=== PATIENT | female | born 1960 | race Caucasian/White ===

== ENCOUNTER → 2017-04-18 | Outpatient (CLI) | payer OTHER | LOC: CIMAGING 09:56 | PROVIDERS: ATTEND Family Medicine | DX: Z12.31 Encounter for screening mammogram for malignant neoplasm of breast (principal) | CPT/HCPCS: G0202 ==

== ENCOUNTER → 2017-11-21 | Outpatient (CLI) | payer OTHER | LOC: CIMAGING 15:47 | PROVIDERS: ATTEND Family Medicine | DX: M19.011 Primary osteoarthritis, right shoulder (principal); M19.072 Primary osteoarthritis, left ankle and foot; M46.96 Unspecified inflammatory spondylopathy, lumbar region; M46.97 Unspecified inflammatory spondylopathy, lumbosacral region; M25.512 Pain in left shoulder; M25.571 Pain in right ankle and joints of right foot | CPT/HCPCS: 72100-PO; 73030-PO; 73600-PO ==

== ENCOUNTER 2018-10-18 15:33 | Emergency (ER) | payer OTHER ==
--- NOTE | 2018-10-18 16:12 | EDPHY ---
H & P Stated Complaint: midsternal cp dry cough/morejon x 1 week Time Seen by Provider: 10/18/18 15:43 HPI/ROS: CHIEF COMPLAINT: Nausea, fatigue, chest discomfort, malaise HISTORY OF PRESENT ILLNESS: Patient presents the ED with 4 days of nausea, fatigue, anterior chest discomfort and malaise. The patient denies any fever or productive cough. She denies dysuria. Patient denies any history of fall or trauma. The patient has no complaints of abdominal pain. She denies melena or hematemesis. Patient denies any history of exertional chest pain or shortness of breath. She has no history of coronary artery disease. The patient does have a history of diabetes, chronic back pain and PVCs. The patient reports sporadic alcohol use. She is not a smoker. REVIEW OF SYSTEMS: A comprehensive 10 point review of systems is otherwise negative aside from elements mentioned in the history of present illness. Source: Patient - Personal History Current Tetanus Diphtheria and Acellular Pertussis (TDAP): Yes - Medical/Surgical History Hx Asthma: No Hx Chronic Respiratory Disease: No Hx Diabetes: Yes Hx Cardiac Disease: No Hx Renal Disease: No Hx Cirrhosis: No Hx Alcoholism: No Hx HIV/AIDS: No Hx Splenectomy or Spleen Trauma: No Other PMH: HYST. TONSILS, hypothyroid, insomnia, anxiety, depression - Social History Smoking Status: Never smoked - Physical Exam Exam: General Appearance: Alert, no distress Eyes: Pupils equal and round no pallor or injection ENT, Mouth: Mucous membranes moist Respiratory: There are no retractions, lungs are clear to auscultation Cardiovascular: Regular rate and rhythm Gastrointestinal: Abdomen is soft and nontender, no masses, bowel sounds normal Neurological: 5/5 strength noted all 4 extremities Skin: Warm and dry, no rashes Musculoskeletal: Neck is supple nontender Extremities: symmetrical, full range of motion Constitutional: Initial Vital Signs Temperature (C) 36.6 C 10/18/18 15:35 Heart Rate 74 10/18/18 15:35 Respiratory Rate 18 10/18/18 15:35 Blood Pressure 163/89 H 10/18/18 15:35 O2 Sat (%) 95 10/18/18 15:35 O2 Delivery Mode Room Air Allergies/Adverse Reactions: amoxicillin trihydrate [From Augmentin] Allergy (Verified 10/18/18 15:34) benzocaine Allergy (Verified 10/18/18 15:34) codeine Allergy (Verified 10/18/18 15:34) potassium clavulanate [From Augmentin] Allergy (Verified 10/18/18 15:34) Home Medications: Medication Instructions Recorded Lexapro 06/15/15 Metoprolol Succinate Xr 06/15/15 THYROID 06/15/15 AMITRIPTYLINE HCL [Amitriptyline 12/24/15 100 mg] Medical Decision Making - Diagnostics EKG Interpretation: EKG: Complete interpretation has been separately recorded in the [facility] archive. Summary impression: Sinus rhythm, rate 61, no ischemic changes noted ED Course/Re-evaluation: The patient presents the ED with malaise, nausea, headache and vague nonexertional chest pain. The patient has no risk factors for coronary artery disease. I find the patient's abdominal examination to be benign. EKG and cardiac enzymes are within normal limits. The patient's CBC and metabolic panel are also normal. This point time I do feel the patient likely is experiencing a viral syndrome. The is reasonable to have the patient take Tylenol and ibuprofen as needed for her symptoms. I would like the patient to follow up with her primary care provider for recheck in the next 1-2 days. She is discharged home with customary aftercare instructions and return precautions. Differential Diagnosis: Differential diagnosis considered includes vomiting, dehydration, metabolic abnormality, acute coronary syndrome, pericarditis, pancreatitis, cholecystitis , viral syndrome - Data Points Laboratory Results: Laboratory Results 10/18/18 15:49 10/18/18 15:49 10/18/18 10/18/18 10/18/18 15:59 15:49 15:49 WBC 6.82 10^3/uL 10^3/uL (3.80-9.50) RBC 4.95 10^6/uL 10^6/uL (4.18-5.33) Hgb 14.3 g/dL g/dL (12.6-16.3) Hct 43.0 % % (38.0-47.0) MCV 86.9 fL fL (81.5-99.8) MCH 28.9 pg pg (27.9-34.1) MCHC 33.3 g/dL g/dL (32.4-36.7) RDW 12.7 % % (11.5-15.2) Plt Count 343 10^3/uL 10^3/uL (150-400) MPV 11.5 fL fL (8.7-11.7) Neut % (Auto) 56.7 % % (39.3-74.2) Lymph % (Auto) 29.0 % % (15.0-45.0) Parmer % (Auto) 9.8 % % (4.5-13.0) Eos % (Auto) 3.2 % % (0.6-7.6) Baso % (Auto) 1.0 % % (0.3-1.7) Nucleat RBC Rel Count 0.0 % % (0.0-0.2) Absolute Neuts (auto) 3.86 10^3/uL 10^3/uL (1.70-6.50) Absolute Lymphs (auto) 1.98 10^3/uL 10^3/uL (1.00-3.00) Absolute Monos (auto) 0.67 10^3/uL 10^3/uL (0.30-0.80) Absolute Eos (auto) 0.22 10^3/uL 10^3/uL (0.03-0.40) Absolute Basos (auto) 0.07 10^3/uL 10^3/uL (0.02-0.10) Absolute Nucleated RBC 0.00 10^3/uL 10^3/uL (0-0.01) Immature Gran % 0.3 % % (0.0-1.1) Immature Gran # 0.02 10^3/uL 10^3/uL (0.00-0.10) Sodium 136 mEq/L mEq/L (135-145) Potassium 4.4 mEq/L mEq/L (3.5-5.2) Chloride 107 mEq/L mEq/L (97-110) Carbon Dioxide 23 mEq/l mEq/l (22-31) Anion Gap 6 mEq/L mEq/L (6-14) BUN 12 mg/dL mg/dL (7-23) Creatinine 0.8 mg/dL mg/dL (0.6-1.0) Estimated GFR > 60 Glucose 93 mg/dL mg/dL (70-100) Calcium 9.9 mg/dL mg/dL (8.5-10.4) POC Troponin I 0.00 ng/mL ng/mL (0.00-0.08) Lipase 10/18/18 15:49 WBC RBC Hgb Hct MCV MCH MCHC RDW Plt Count MPV Neut % (Auto) Lymph % (Auto) Parmer % (Auto) Eos % (Auto) Baso % (Auto) Nucleat RBC Rel Count Absolute Neuts (auto) Absolute Lymphs (auto) Absolute Monos (auto) Absolute Eos (auto) Absolute Basos (auto) Absolute Nucleated RBC Immature Gran % Immature Gran # Sodium Potassium Chloride Carbon Dioxide Anion Gap BUN Creatinine Estimated GFR Glucose Calcium POC Troponin I Lipase 109 IU/L IU/L (23-300) Point of Care Test Results: Chemistry 10/18/18 15:59 POC Troponin I 0.00 ng/mL ng/mL (0.00-0.08) Departure - Departure Disposition: Home, Routine, Self-Care Clinical Impression: Chest pain Condition: Good Instructions: Chest Pain (ED), Fatigue (ED) Additional Instructions: 1. The testing done in the emergency department today demonstrates no obvious cardiac condition or other abnormality. 2. Tylenol and ibuprofen as needed for mild headache and discomfort. 3. Please return to the ED for markedly worsening symptoms or other concerns. 4. Please contact your primary care provider to schedule a follow-up visit. Referrals: Yvette Anthony, DO [Primary Care Provider] - As per Instructions
--- NOTE | 2018-10-18 16:12 | CPEKG ---
Test Reason : OPEN Blood Pressure : / mmHG Vent. Rate : 061 BPM Atrial Rate : 062 BPM P-R Int : 155 ms QRS Dur : 085 ms QT Int : 418 ms P-R-T Axes : 048 028 023 degrees QTc Int : 421 ms Sinus rhythm Confirmed by Chaka Sands ([id number]) on 10/18/2018 4:12:23 PM Referred By: Chaka Sands Confirmed By:Chaka Sands
[2018-10-18 17:38] LABS: PLATELET COUNT 343 10^3/uL (150-400)
[2018-10-18 18:28] VITALS: BP 133/83
== END 2018-10-18 18:30 | disposition home or self-care (01) ==
DX: R07.9 Chest pain, unspecified (principal); R11.0 Nausea; R53.83 Other fatigue; M79.10 Myalgia, unspecified site
CPT/HCPCS: 84484-ER

== ENCOUNTER → 2018-11-18 | Outpatient (CLI) | payer OTHER | LOC: FIMAGING 12:43 | PROVIDERS: ATTEND Family Medicine | DX: Z12.31 Encounter for screening mammogram for malignant neoplasm of breast (principal) ==